=== PATIENT | male | born 2000 | race Asian ===

== ENCOUNTER 2022-08-13 19:50 | Emergency (ER) | payer BC ==
[~2022-08-13] VITALS: Ht 167.6 cm; Wt 74.8 kg
[2022-08-13 19:55] VITALS: BP 139/102; PULSE 94; RESP 16; TEMP 97.8; O2SAT 98
--- NOTE | 2022-08-13 20:04 | NUR ---
TO BED 4 FROM TRIAGE
[2022-08-13] MEDS ORDERED: LIDOCAINE 1% 500 MG/ 50 ML VIAL INJ ONE (20:30)
[2022-08-13] MEDS ORDERED: LIDOCAINE MPF 1% 5 ML ONE (20:41)
[2022-08-13] MEDS ORDERED: IBUP-2213 PO (21:16)
[2022-08-13] MEDS ORDERED: AMOX-999 PO (21:16)
[2022-08-13] MEDS ORDERED: ACET-10509 PO (21:16)
[2022-08-13 21:20] VITALS: BP 139/102; PULSE 94; RESP 16; TEMP 97.8; O2SAT 98
--- NOTE | 2022-08-13 21:24 | NUR ---
PATIENT IS A 21/M WHO CAME IN DUE TO LEFT 4TH & 5TH DIGIT LACERATION S/P DOG BITE, 07/19 PAIN X 1 HOUR AGO. pATIENT HAS UPDATED TETANUS VACCINATION. PMX: DENIES ALLERGIES: PENICILLINS Addendum: 08/13/22 at 2129 by MED LEFT HAND, 4TH & 5TH DIGITS
--- NOTE | 2022-08-13 21:35 | NUR ---
Patient discharged. Written and verbal after care instructions given and explained. Patient alert, oriented and verbalized understanding of instructions. Ambulatory with steady gait. All questions addressed prior to discharge. ID band removed. Patient advised to follow up with PMD. Rx of Tylenol, Augmentin & Ibuprofen given. Patient educated on indication of medication including possible reaction and side effects. Opportunity to ask questions provided and answered.
== END 2022-08-13 21:35 | disposition home or self-care (01) ==
LOC: MED 19:50
DX: S61.215A Laceration without foreign body of left ring finger without damage to nail, initial encounter (principal); Z88.0 Allergy status to penicillin; Z79.899 Other long term (current) drug therapy; W54.0XXA Bitten by dog, initial encounter; Y93.89 Activity, other specified; Y92.89 Other specified places as the place of occurrence of the external cause; Y99.8 Other external cause status
CPT/HCPCS: 12001; 99283; J2001